=== PATIENT | female | born 1955 | race Caucasian/White ===

== ENCOUNTER 2019-09-24 11:38 | Outpatient (CLI) | payer BC, SELFPAY ==
[2019-09-24 12:20] LABS: Basophils % 0.6 %; Eosinophils # 0.1 10^3/uL (0.0-0.8); Eosinophils % 3.4 %; Hematocrit 42.7 % (37.0-47.0); Hemoglobin 12.9 g/dL (11.5-15.3); Lymphocytes # 1.4 10^3/uL (0.8-4.8); Lymphocytes % 43.4 %; Mean Corpuscular HGB Conc 30.2 g/dL (30.0-36.0); Mean Corpuscular Hemoglobin 25.1 pg (28.0-34.0); Mean Corpuscular Volume 83.1 fL (81-99); Mean Platelet Volume 9.8 fL (7.4-10.4); Monocytes # 0.3 10^3/uL (0.2-0.9); Monocytes % 9.5 %; Neutrophils # 1.4 10^3/uL (1.8-7.7); Neutrophils % 42.8 %; Nucleated Red Blood Cells % 0 %; Platelet Count 173 10^3/cmm (130-400); Red Blood Count 5.14 10^6/uL (4.1-5.3); Red Cell Distribution Width 14.6 % (12.1-15.1); White Blood Count 3.3 10^3/uL (4.0-10.0)
[2019-09-24 12:37] LABS: Alanine Aminotransferase 19 U/L (0-33); Albumin Level 3.7 g/dL (3.5-5.2); Alkaline Phosphatase 120 IU/L (35-105); Anion Gap 14.7 (5-19); Aspartate Amino Transferase 19 U/L (0-32); Blood Urea Nitrogen 16 mg/dL (8-23); Calcium 9.2 mg/dL (8.5-10.5); Carbon Dioxide 24 mmol/L (22-29); Chloride 104 mmol/L (98-107); Globulin 3.9 g/dL (1.3-4.6); Glomerular Filtration Rate 72.4 mL/min (90-130); Glucose 106 mg/dL (65-115); Osmolality Calculated 285 mOsm/kg (285-295); Potassium 3.7 mmol/L (3.5-5.1); Sodium 139 mmol/L (136-145); Total Bilirubin 0.3 mg/dL (0.15-1.2); Total Protein 7.6 g/dL (6.6-8.7)
== END 2019-09-24 11:39 | disposition home or self-care (01) ==
LOC: ONCMED 11:42
PROVIDERS: PCP Nurse Practitioner Family; Visit Provider Internal Medicine Medical Oncology
DX: C50.112 Malignant neoplasm of central portion of left female breast (principal); Z17.0 Estrogen receptor positive status [ER+]; E03.9 Hypothyroidism, unspecified; D70.2 Other drug-induced agranulocytosis; Z78.0 Asymptomatic menopausal state
CPT/HCPCS: 36415; 80053; 85025

== ENCOUNTER 2019-10-07 09:46 | Outpatient (CLI) | payer BC, SELFPAY ==
[2019-10-07 11:50] LABS: T3 Free 3.1 PG/ML (2.0-4.4); Thyroid Stimulating Hormone 0.26 uIU/mL (0.27-4.20)
--- NOTE | 2019-10-07 19:58 | ONC FU_ITS ---
Dr. Newton Patient Follow-Up Note Patient: Tamera Pierre Unit #: [id number]: 1955 Dicatated By: Emerson Newton M.D.Date of Visit:Oct 07, 2019 Onc Med Follow-up/Prog Note Chief Complaint: Breast cancer. History of Present Illness: This is a 63 year-old woman with grade 2 invasive ductal carcinoma of the left breast, stage IIIA (pT1c, pN2a, M0), ER positive/HI negative and HER-2/shanita negative. She had presented in February 2013 with an abnormal mammogram of the left breast. On 09/18/2013 stereotactic biopsy revealed a high-grade ductal carcinoma in situ (DCIS) with comedo necrosis and the rare microscopic foci of infiltrating ductal carcinoma. Prognostic markers showed ER positive at 97%, HI negative at <1%, HER-2/shanita negative, 1+ by IHC, FISH 0.9. On 10/08/2013 she was taken to OR by Dr. Aris Melgar for partial mastectomy and sentinel lymph node biopsy. At least 4 foci of invasive carcinoma were identified in the background of DCIS, the largest measured 1.3 cm, grade 2, with a positive lymphovascular invasion and positive margins. All four sentinel lymph nodes harvested were involved with the tumor, two of the four nodes had macro-metastatic disease, but without extranodal extension. Thus, her disease was pathologic stage at least IIIA (pT1c, pN2a, M0). On 10/29/2013 she underwent a left simple mastectomy. Pathology showed residual high-grade DCIS with rare microscopic foci of infiltrating ductal carcinoma. She was first seen by Dr. Dia on 11/27/2013. Staging PET CT showed no evidence of distant metastatic disease, but there were kidney stones and there was significant bilateral hydronephrosis. Renal ultrasound on 12/16/2013 showed [id number] bilateral hydronephrosis. She underwent a lithotripsy and bilateral ureteral stent placement, with subsequent removal. Echocardiogram on 12/01/2013 showed EF 72%. Port was placed. Adjuvant chemotherapy with Adriamycin and cyclophosphamide for 4 cycles delivered 12/23/2013-02/03/2014. She had significant hematological toxicities including grade 4 neutropenia without infection, and mild thrombocytopenia. She then received 4 cycles of paclitaxel 02/24/2014 - 04/07/14, complicated with grade 2 neuropathy and onycholysis. Port-A-Cath was removed. BRCA test was unrevealing. She completed adjuvant radiation treatment to the left chest wall and supraclavicular region on 07/01/2014 to a total dose of 6040 cGy. Adjuvant hormonal therapy with anastrozole began on 04/29/2014. Her mammogram in August of 2014 was BI-RADS 2b. DEXA scan showed normal bone density. In January 2015 she underwent delayed breast reconstruction with principal secretary placement. On 02/17/2015 a CBC revealed significant asymptomatic neutropenia, ANC 500. On 03/31/2015 she began a trial of steroid with taper. She did show response with WBC 3.4 and ANC 2400 after 2 weeks of steroids. However, as soon as the steroids were tapered off she had recurrent neutropenia, ANC 300 on 04/30/2015. Her sedimentation rate also had decreased from 63 to 21. As her neutropenia had persisted, she was evaluated with bone marrow aspiration/biopsy on 12/22/2015. The bone marrow showed 50-60% cellularity with no evidence of infiltrative process. There was limited dyserythropoiesis involving less than 5% of the population. Granulocytes were ignored to mature without evidence of significant maturation arrest. There were normal numbers of lymphocytes and plasma cells. The bone marrow differential showed 0% blasts, and blasts were not increased by flow cytometry. There was no storage iron identified. The FISH panel for MDS was negative, and the standard chromosome analysis was normal. 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 As she was not symptomatic, I opted to just monitor it with observation. She continued adjuvant hormonal therapy with anastrozole. As of her followup visit in June 2017 the anatrozole was put on hold due to worsening alopecia. She then continued adjuvant hormonal therapy with exemestane 25 mg daily. She was then seen for a follow-up visit on 12/03/2017. She had stopped the exemestane a couple weeks prior to that visit due to side effects, mainly that she just felt bad generally. At that point she was feeling better, and she agreed to continue adjuvant hormonal therapy with tamoxifen 20 mg daily. However, she tolerated it poorly, and she stopped treatment within one month. She was then followed on observation/expectant management. Her medical history, in addition to breast cancer and neutropenia, includes hypothyroidism and nephrolithiasis. Her previous surgeries included hysterectomy in 2002. She is a nonsmoker. INTERIM HISTORY: She is seen for a scheduled visit. Her main complaint is that she has been having pretty severe allergy related symptoms including watery eyes, sinus drainage, and sore throat. She has had very little benefit on a variety of medications. At the present time she is using Xyzal and an antihistamine spray, and she is undergoing allergy testing through Dr. Chávez's office. She has otherwise been feeling good. She has good energy and she has normal activity. ECOG score is 0. Her appetite comes and goes. She has lost a little weight. She does not have fever, night sweats, or hot flashes. She has just occasional cough. She does not complain of shortness of breath or chest pain. She was having nausea, likely medication related. It is better now. Her acid reflux is adequately managed. She has no complaints with bowel or bladder function. She has some stiffness after prolonged standing. She sometimes has low back pain. She does not complain of headache or dizziness, and she has no focal neurologic symptoms. Medications: Levocetirizine Dihydrochloride 1 Tablet (of 5 mg) Oral daily, Levothroid 1 Tablet (of 112 mcg) Oral daily, Oxybutynin Chloride 1 Tablet (of 5 mg) Oral daily PRN, Pantoprazole Sodium 1 Tablet (of 40 mg) Tablet, enteric coated Oral daily, Zolpidem Tartrate 1 Tablet (of 10 mg) Oral daily Allergies: Clarithromycin, Demerol, and Sulfa. Review of Systems: Constitutional - She has good energy and she has normal activity. Appetite comes and goes. She has lost a little weight. No fever, night sweats, or hot flashes. ECOG score is 0, ENMT - She is having bad allergy related symptoms including watery eyes, sinus drainage, and sore throat. No difficulty swallowing, Hematologic/Lymphatic - No abnormal bruising or bleeding, Respiratory - No shortness of breath. She occasionally has cough. No pleuritic pain or hemoptysis, Cardiovascular - No angina pain. No palpitations, Gastrointestinal - She was having nausea, possibly from medication. It is better now. Her acid reflux is adequately managed. No diarrhea or constipation. No blood in the stool or black stools, Genitourinary (F) - No dysuria or hematuria. No urinary frequency. No urgency or incontinence, Musculoskeletal - She has some stiffness, particularly when she has been standing up all day. She sometimes has back pain, Neurologic - No headache or dizziness. No numbness or tingling. No other focal neurologic symptoms, Psychiatric - No anxiety or depression. She has chronic insomnia. Vital Signs: Performed on Oct 07, 2019 10:07 Height - 65.00 in Weight - 174.6 lbs (LOW) BSA - 1.87 sq.m BMI - 29.06 Temperature - 98.2 F (LOW) Pulse - 87 /min Respiration - 20 /min BP - 147/64 mm(hg) (HIGH) O2 Sat - 99 % Pain - 0 Physical Examination: Constitutional - She looks good generally, Eyes - Sclerae nonicteric. Her eyes do look a little red and watery, ENMT - No lesions noted in the oral cavity, Hematologic/Lymphatic - No cervical or clavicular adenopathy, Respiratory - Lungs are clear with good air movement bilaterally, Cardiovascular - Heart rhythm is regular. There is no murmur, gallop, or rub noted, Breasts - The right breast shows no mass. There are no lesions noted in the left chest wall/reconstruction. There is no axillary adenopathy noted, Abdomen - Soft. Liver and spleen are not enlarged. There is no abdominal mass or ascites noted and there is no inguinal adenopathy, Extremities - No edema. Posterior tibial pulses are palpable bilaterally, Neurologic - No focal neurologic deficits noted. Lab/Imaging: Test performed on Sep 24, 2019 11:48 Sodium 139 mmol/L Potassium 3.7 mmol/L Chloride 104 mmol/L CO2 24 mmol/L Anion Gap 14.7 BUN 16 mg/dL Creatinine 0.8 mg/dL Cr Clearance (Est) 92.9800 mL/min eGFR 72.4 mL/min Glucose 106 mg/dL Calcium 9.2 mg/dL Protein, Total 7.6 g/dL Albumin 3.7 g/dL Globulin 3.9 g/dL Bilirubin, Total 0.3 mg/dL ALT (SGPT) 19 U/L AST (SGOT) 19 U/L Alkaline Phosphatase 120 IU/L WBC 3.3 10 3/uL RBC 5.14 10 6/uL HGB 12.9 g/dL HCT 42.7 % MCV 83.1 fL MCH 25.1 pg MCHC 30.2 g/dL RDW 14.6 % Platelet Count 173 10 3/cmm MPV 9.8 fL Neutrophils 1.4 10 3/uL Lymphocytes 1.4 10 3/uL Monocytes 0.3 10 3/uL Eosinophils 0.1 10 3/uL Basophils 0.0 10 3/uL Neutrophil % 42.8 % Lymphocyte % 43.4 % Monocyte % 9.5 % Eosinophil % 3.4 % Basophils % 0.6 % NRBC % 0 % Impression: 1. 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 2. She underwent lumpectomy and axillary sentinel lymph node biopsy on 10/08/2013 followed by left simple mastectomy on 10/29/2013. 3. She was given adjuvant chemotherapy with 4 cycles of Adriamycin/cyclophosphamide followed by 4 cycles of paclitaxel, completed in March 2014. 4. She completed prophylactic chest wall radiation on 07/01/2014 to a total dose of 6040 cGy. 5. Adjuvant hormonal therapy with Arimidex began in April 2014. 6. Her further clinical course was complicated by asymptomatic neutropenia. Bone marrow aspiration/biopsy on 12/22/2015 showed no evidence of myelodysplasia or metastatic involvement. Her other medical illnesses include: 7. GERD. 8. Allergic rhinitis. As of June 2017 the anastrozole was stopped due to worsening alopecia. Her adjuvant hormonal therapy was then transitioned to exemestane 25 mg daily. It was stopped in November 2017 due to extreme fatigue. She then began a trial of further adjuvant hormonal therapy with tamoxifen 20 mg daily. She again tolerated it poorly due to fatigue and just not feeling good generally. It was stopped as of December 2017. Her symptoms subsequently improved, and she was then followed on observation/expectant management. Overall, she appears be doing well clinically with no evidence of recurrence of the breast cancer. Recently she has been having worsening allergy related symptoms, And she is undergoing evaluation through Dr. Chávez's office. She otherwise appears stable clinically. Thus far there has been no evidence of recurrence of the breast cancer, and she is now 5 years out from completion of her radiation. Plan: She remains on observation/expectant management. I will see her again in next year in conjunction with her yearly mammogram schedule. Signed By: Emerson Newton M.D. <<Signature on File>>
== END 2019-10-07 09:47 | disposition home or self-care (01) ==
LOC: ONCMED 09:50
PROVIDERS: PCP Nurse Practitioner Family; Visit Provider Internal Medicine Medical Oncology
DX: Z08 Encounter for follow-up examination after completed treatment for malignant neoplasm (principal); Z85.3 Personal history of malignant neoplasm of breast; J30.9 Allergic rhinitis, unspecified; K21.9 Gastro-esophageal reflux disease without esophagitis; Z92.3 Personal history of irradiation; Z92.23 Personal history of estrogen therapy; Z90.12 Acquired absence of left breast and nipple
CPT/HCPCS: 84439; 84443; 84481; G0463

== ENCOUNTER 2020-02-25 13:05 | Outpatient (CLI) | payer BC, SELFPAY ==
--- NOTE | 2020-02-25 13:13 | MM_ITS ---
WS: [id number] RIGHT DIGITAL MAMMOGRAPHY WITH CAD CLINICAL INFORMATION: HX OF BREAST CA;LT MASTECTOMY HISTORY: COMPARISON: [id number] TECHNIQUE: 3 views of the right breast were obtained. FINDINGS: Scattered fibroglandular densities of the right breast. Lucent centered and punctate calcifications. No suspicious focal mass, asymmetry, calcifications, or architectural distortion. No evidence of norma gnancy. MM/[place] [id number] IMPRESSION: BI-RADS: 2-Benign FOLLOW UP: 1 Year Follow-up Recommend return to annual diagnostic mammography..
== END 2020-02-25 13:06 | disposition home or self-care (01) ==
LOC: ONCMED 13:08
PROVIDERS: PCP Nurse Practitioner Family; Visit Provider Internal Medicine Medical Oncology
DX: Z85.3 Personal history of malignant neoplasm of breast (principal)
CPT/HCPCS: 77065

== ENCOUNTER 2020-10-07 11:31 | Outpatient (CLI) | payer OTHER, SELFPAY ==
[2020-10-07 11:55] LABS: Basophils % 1.5 %; Eosinophils # 0.1 10^3/uL (0.0-0.8); Eosinophils % 5.6 %; Hematocrit 43.3 % (37.0-47.0); Hemoglobin 13.5 g/dL (11.5-15.3); Lymphocytes # 1.2 10^3/uL (0.8-4.8); Lymphocytes % 58.9 %; Mean Corpuscular HGB Conc 31.2 g/dL (30.0-36.0); Mean Corpuscular Hemoglobin 25.6 pg (28.0-34.0); Mean Platelet Volume 9.6 fL (7.4-10.4); Monocytes # 0.3 10^3/uL (0.2-0.9); Monocytes % 13.7 %; Neutrophils % 19.8 %; Nucleated Red Blood Cells % 0 %; Platelet Count 196 10^3/cmm (130-400); Red Blood Count 5.28 10^6/uL (4.1-5.3); Red Cell Distribution Width 14.6 % (12.1-15.1)
[2020-10-07 12:15] LABS: Alanine Aminotransferase 15 U/L (0-33); Albumin Level 3.9 g/dL (3.5-5.2); Alkaline Phosphatase 121 IU/L (35-105); Anion Gap 10.8 (5-19); Aspartate Amino Transferase 17 U/L (0-32); Blood Urea Nitrogen 12 mg/dL (8-23); Calcium 8.8 mg/dL (8.5-10.5); Carbon Dioxide 29 mmol/L (22-29); Chloride 105 mmol/L (98-107); Globulin 3.3 g/dL (1.3-4.6); Glomerular Filtration Rate 72.2 mL/min (90-130); Glucose 102 mg/dL (65-115); Osmolality Calculated 292 mOsm/kg (285-295); Potassium 3.8 mmol/L (3.5-5.1); Sodium 141 mmol/L (136-145); Total Bilirubin 0.3 mg/dL (0.15-1.2); Total Protein 7.2 g/dL (6.6-8.7)
[2020-10-07 13:06] LABS: Neutrophils # 0.39 10^3/uL (1.8-7.7)
--- NOTE | 2020-10-10 14:59 | ONC FU_ITS ---
Dr. Newton Patient Follow-Up Note Patient: Tamera Pierre Unit #: [id number]: 1955 Dicatated By: Emerson Newton M.D.Date of Visit:Oct 07, 2020 Onc Med Follow-up/Prog Note Chief Complaint: Breast cancer. 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 She had presented in February 2013 with an abnormal mammogram of the left breast. On 09/18/2013 stereotactic biopsy revealed a high-grade ductal carcinoma in situ (DCIS) with comedo necrosis and the rare microscopic foci of infiltrating ductal carcinoma. Prognostic markers showed ER positive at 97%, NV negative at <1%, HER-2/shanita negative, 1+ by IHC, FISH 0.9. On 10/08/2013 she was taken to OR by Dr. Aris Melgar for partial mastectomy and sentinel lymph node biopsy. At least 4 foci of invasive carcinoma were identified in the background of DCIS, the largest measured 1.3 cm, grade 2, with a positive lymphovascular invasion and positive margins. All four sentinel lymph nodes harvested were involved with the tumor, two of the four nodes had macro-metastatic disease, but without extranodal extension. Thus, her disease was pathologic stage at least IIIA (pT1c, pN2a, M0). On 10/29/2013 she underwent a left simple mastectomy. Pathology showed residual high-grade DCIS with rare microscopic foci of infiltrating ductal carcinoma. She was first seen by Dr. Dia on 11/27/2013. Staging PET CT showed no evidence of distant metastatic disease, but there were kidney stones and there was significant bilateral hydronephrosis. Renal ultrasound on 12/16/2013 showed [id number] bilateral hydronephrosis. She underwent a lithotripsy and bilateral ureteral stent placement, with subsequent removal. Echocardiogram on 12/01/2013 showed EF 72%. Port was placed. Adjuvant chemotherapy with Adriamycin and cyclophosphamide for 4 cycles delivered 12/23/2013-02/03/2014. She had significant hematological toxicities including grade 4 neutropenia without infection, and mild thrombocytopenia. She then received 4 cycles of paclitaxel 02/24/2014 - 04/07/14, complicated with grade 2 neuropathy and onycholysis. Port-A-Cath was removed. BRCA test was unrevealing. She completed adjuvant radiation treatment to the left chest wall and supraclavicular region on 07/01/2014 to a total dose of 6040 cGy. Adjuvant hormonal therapy with anastrozole began on 04/29/2014. Her mammogram in August of 2014 was BI-RADS 2b. DEXA scan showed normal bone density. In January 2015 she underwent delayed breast reconstruction with exhibit carpenter placement. On 02/17/2015 a CBC revealed significant asymptomatic neutropenia, ANC 500. On 03/31/2015 she began a trial of steroid with taper. She did show response with WBC 3.4 and ANC 2400 after 2 weeks of steroids. However, as soon as the steroids were tapered off she had recurrent neutropenia, ANC 300 on 04/30/2015. Her sedimentation rate also had decreased from 63 to 21. As her neutropenia had persisted, she was evaluated with bone marrow aspiration/biopsy on 12/22/2015. The bone marrow showed 50-60% cellularity with no evidence of infiltrative process. There was limited dyserythropoiesis involving less than 5% of the population. Granulocytes were ignored to mature without evidence of significant maturation arrest. There were normal numbers of lymphocytes and plasma cells. The bone marrow differential showed 0% blasts, and blasts were not increased by flow cytometry. There was no storage iron identified. The FISH panel for MDS was negative, and the standard chromosome analysis was normal. 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 As she was not symptomatic, I opted to just monitor it with observation. She continued adjuvant hormonal therapy with anastrozole. As of her followup visit in June 2017 the anatrozole was put on hold due to worsening alopecia. She then continued adjuvant hormonal therapy with exemestane 25 mg daily. She was then seen for a follow-up visit on 12/03/2017. She had stopped the exemestane a couple weeks prior to that visit due to side effects, mainly that she just felt bad generally. At that point she was feeling better, and she agreed to continue adjuvant hormonal therapy with tamoxifen 20 mg daily. However, she tolerated it poorly, and she stopped treatment within one month. She was then followed on observation/expectant management. Her medical history, in addition to breast cancer and neutropenia, includes hypothyroidism and nephrolithiasis. Her previous surgeries included hysterectomy in 2002. She is a nonsmoker. INTERIM HISTORY: She is seen for a scheduled visit. She has been feeling good generally. She says she had the COVID-19 virus infection back in January. She recovered uneventfully. She has good energy and activity tolerance. Her ECOG score is 0. Her appetite is good. She has no fever, night sweats, or hot flashes. She has significant allergies, and she is now getting allergy shots weekly. She was having dry mouth, which improved significantly when she stopped taking her bladder medication. She has no shortness of breath, cough, or chest pain. She has some acid reflux associated with hiatal hernia, but that has been adequately managed with medication. She has no other GI complaints. She has more frequent urination now. She has no significant joint or bone pain. She does not complain of headache or dizziness, and she has no focal neurologic symptoms. Medications: Levocetirizine Dihydrochloride 1 Tablet (of 5 mg) Oral daily, Levothroid 1 Tablet (of 112 mcg) Oral daily, Oxybutynin Chloride 1 Tablet (of 5 mg) Oral daily PRN, Pantoprazole Sodium 1 Tablet (of 40 mg) Tablet, enteric coated Oral daily, Zolpidem Tartrate 1 Tablet (of 10 mg) Oral daily Allergies: Clarithromycin, Demerol, and Sulfa. Vital Signs: Performed on Oct 07, 2020 16:15 Height - 65.00 in Weight - 184.4 lbs (HIGH) BSA - 1.91 sq.m BMI - 30.69 (HIGH) Temperature - 99 F (HIGH) Pulse - 85 /min Respiration - 18 /min BP - 155/91 mm(hg) (HIGH) O2 Sat - 99 % Pain - 0 Fatigue - 0 Physical Examination: Constitutional - She looks good generally, Eyes - Sclerae nonicteric. Conjunctivae clear, ENMT - No lesions noted in the oral cavity, Hematologic/Lymphatic - No cervical or clavicular adenopathy, Respiratory - Lungs are clear with good air movement bilaterally, Cardiovascular - Heart rhythm is regular. There is no murmur, gallop, or rub noted, Breasts - The right breast shows no mass. There are no lesions noted in the left chest wall/reconstruction. There is no axillary adenopathy noted, Abdomen - Soft. Liver and spleen are not enlarged. There is no abdominal mass or ascites noted and there is no inguinal adenopathy, Extremities - No edema, Integumentary - There is a pigmented nevus in the upper aspect of the right arm posteriorly, Neurologic - No focal neurologic deficits noted. Lab/Imaging: Test performed on Oct 07, 2020 11:44 Sodium 141 mmol/L Potassium 3.8 mmol/L Chloride 105 mmol/L CO2 29 mmol/L Anion Gap 10.8 BUN 12 mg/dL Creatinine 0.8 mg/dL Cr Clearance (Est) 93.81 mL/min eGFR 72.2 mL/min Glucose 102 mg/dL Osmolality - Calculated 292 mOsm/kg Calcium 8.8 mg/dL Protein, Total 7.2 g/dL Albumin 3.9 g/dL Globulin 3.3 g/dL Bilirubin, Total 0.3 mg/dL ALT (SGPT) 15 U/L AST (SGOT) 17 U/L Alkaline Phosphatase 121 IU/L WBC 2.0 10 3/uL RBC 5.28 10 6/uL HGB 13.5 g/dL HCT 43.3 % MCV 82.0 fL MCH 25.6 pg MCHC 31.2 g/dL RDW 14.6 % Platelet Count 196 10 3/cmm MPV 9.6 fL Neutrophils 0.39 10 3/uL Lymphocytes 1.2 10 3/uL Monocytes 0.3 10 3/uL Eosinophils 0.1 10 3/uL Basophils 0.0 10 3/uL Neutrophil % 19.8 % Lymphocyte % 58.9 % Monocyte % 13.7 % Eosinophil % 5.6 % Basophils % 1.5 % NRBC % 0 % Problem List: 1. Grade 2 invasive ductal carcinoma of the left breast, stage IIIA (pT1c, N2a, M0), ER positive/NV negative and HER-2/shanita negative. 2. During followup she developed severe neutropenia. She was not symptomatic with it. It was presumed to be autoimmune, as her bone marrow aspiration/biopsy on 12/22/2015 showed no evidence of myelodysplasia or metastatic involvement. 3. GERD. 4. Allergic rhinitis. Problems Addressed with this Encounter and Plan: 1. 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 She underwent lumpectomy and axillary sentinel lymph node biopsy on 10/08/2013 followed by left simple mastectomy on 10/29/2013. She was given adjuvant chemotherapy with 4 cycles of Adriamycin/cyclophosphamide followed by 4 cycles of paclitaxel, completed in March 2014. She completed prophylactic chest wall radiation on 07/01/2014 to a total dose of 6040 cGy. Adjuvant hormonal therapy with Arimidex began in April 2014. As of June 2017 the anastrozole was stopped due to worsening alopecia. Her adjuvant hormonal therapy was then transitioned to exemestane 25 mg daily. It was stopped in November 2017 due to extreme fatigue. She then began a trial of further adjuvant hormonal therapy with tamoxifen 20 mg daily. She again tolerated it poorly due to fatigue and just not feeling good generally. It was stopped as of December 2017. Her symptoms subsequently improved, and she was then followed on expectant management. Overall, she has been doing well clinically since stopping the adjuvant hormonal therapy. She has had some ongoing issues with environmental allergies, for which she is now getting allergy shots weekly. There has been no evidence, though, of recurrence of her breast cancer. She remains on observation/expectant management. She will be scheduled for follow-up visit in 1 year. 2. Her clinical course was complicated by asymptomatic neutropenia. This is presumed to be autoimmune, as her bone marrow aspiration/biopsy on 12/22/2015 showed no evidence of myelodysplasia or metastatic involvement. It has been followed expectantly, as she has remained asymptomatic with it. Signed By: Emerson Newton M.D. <<Signature on File>>
== END 2020-10-07 11:32 | disposition home or self-care (01) ==
LOC: ONCMED 11:38
PROVIDERS: PCP Family Medicine; Visit Provider Internal Medicine Medical Oncology
DX: Z08 Encounter for follow-up examination after completed treatment for malignant neoplasm (principal); Z85.3 Personal history of malignant neoplasm of breast; D70.1 Agranulocytosis secondary to cancer chemotherapy; T45.1X5A Adverse effect of antineoplastic and immunosuppressive drugs, initial encounter; K21.9 Gastro-esophageal reflux disease without esophagitis; J30.9 Allergic rhinitis, unspecified; L65.8 Other specified nonscarring hair loss; Z79.899 Other long term (current) drug therapy; Z92.21 Personal history of antineoplastic chemotherapy
CPT/HCPCS: 36415; 80053; 85025; 99214

== ENCOUNTER 2021-02-28 11:41 | Outpatient (CLI) | payer MEDICARE, SELFPAY ==
--- NOTE | 2021-02-28 11:50 | MM_ITS ---
WS: [id number] RIGHT DIGITAL MAMMOGRAPHY WITH CAD CLINICAL INFORMATION: HX OF BREAST CA;LT MASTECTOMY. HISTORY OF RIGHT BREAST REDUCTION COMPARISON: February 25, 2020 TECHNIQUE: 4 views of the right breast were obtained. FINDINGS: Scattered fibroglandular densities of the right breast. Benign punctate and clustered calcifications. No suspicious focal mass, asymmetry, calcifications, or architectural distortion. No evidence of norma gnancy. MM/[place] [id number] IMPRESSION: BI-RADS: 2-Benign FOLLOW UP: 1 Year Follow-up Recommend return to annual diagnostic mammography.
== END 2021-02-28 11:42 | disposition home or self-care (01) ==
LOC: RADSHAW 11:46
PROVIDERS: PCP Family Medicine; Visit Provider Internal Medicine Medical Oncology
DX: Z85.3 Personal history of malignant neoplasm of breast (principal); Z90.12 Acquired absence of left breast and nipple
CPT/HCPCS: 77065

== ENCOUNTER 2021-11-16 12:01 | Oncology outpatient (recurring) (ONCR) | payer MEDICARE, SELFPAY | END 2021-12-14 23:59 | disposition home or self-care (01) | PROVIDERS: PCP Family Medicine; Visit Provider Nurse Practitioner Family | DX: Z08 Encounter for follow-up examination after completed treatment for malignant neoplasm (principal); Z85.3 Personal history of malignant neoplasm of breast; Z90.12 Acquired absence of left breast and nipple; D70.8 Other neutropenia; D50.9 Iron deficiency anemia, unspecified; Z79.899 Other long term (current) drug therapy; Z92.21 Personal history of antineoplastic chemotherapy; Z92.3 Personal history of irradiation | CPT/HCPCS: 80053; 82728; 83540; 83550; 85025; 99214 ==

== ENCOUNTER 2022-02-20 08:11 | Outpatient (CLI) | payer MEDICARE, SELFPAY ==
--- NOTE | 2022-02-20 08:23 | MM_ITS ---
WS: [id number] Right breast diagnostic 3D tomosynthesis digital mammogram 02/20/2022 Clinical Data: HX OF BREAST CA;LT MAST Comparison: 02/28/2021, 02/25/2020, 01/19/2019, 12/12/2017, 12/06/2016, 12/06/2015, 09/02/2014, 02/26/2013 , 12/29/2011, 12/13/2010, 04/06/2010. Findings: The right breast shows scattered fibroglandular tissue. There are benign calcifications in the breast s. There are no spiculated masses or clustered calcifications. There are no secondary signs of carcin martin. MM/[place] [id number] Impression: 1. Negative right breast mammogram. 2. Recommend annual right breast mammogram BIRADS: 1-Negative FOLLOW UP: 1 Year Follow-up The CAD bakery products checker was used.
[2022-02-20 09:28] LABS: Basophils % 1.4 %; Eosinophils # 0.2 10^3/uL (0.0-0.8); Eosinophils % 9.4 %; Hematocrit 43.9 % (37.0-47.0); Hemoglobin 13.9 g/dL (11.5-15.3); Lymphocytes # 1.3 10^3/uL (0.8-4.8); Lymphocytes % 59.9 %; Mean Corpuscular HGB Conc 31.7 g/dL (30.0-36.0); Mean Corpuscular Hemoglobin 26.5 pg (28.0-34.0); Mean Corpuscular Volume 83.8 fl (81-99); Mean Platelet Volume 9.5 fL (7.4-10.4); Monocytes # 0.3 10^3/uL (0.2-0.9); Neutrophils % 13.3 %; Nucleated Red Blood Cells % 0 %; Platelet Count 176 10^3/cmm (130-400); Red Blood Count 5.24 10^6/uL (4.1-5.3); Red Cell Distribution Width 14.4 % (12.1-15.1); White Blood Count 2.1 10^3/uL (4.0-10.0)
[2022-02-20 09:34] LABS: Iron 48 ug/dL (37-145); Total Iron Binding Capacity 341 mcg/dl; Unsaturated Iron Binding 293 ug/dL (112-347)
[2022-02-20 09:44] LABS: Neutrophils # 0.28 10^3/uL (1.8-7.7)
== END 2022-02-20 08:12 | disposition home or self-care (01) ==
LOC: RAD 08:12
PROVIDERS: PCP Family Medicine; Visit Provider Internal Medicine Medical Oncology
DX: Z85.3 Personal history of malignant neoplasm of breast (principal); D50.9 Iron deficiency anemia, unspecified; D70.8 Other neutropenia
CPT/HCPCS: 77061; 83540; 83550; 85025

== ENCOUNTER 2022-11-28 16:46 | Observation (INO) | payer MEDICARE, SELFPAY ==
[2022-11-27 10:19] LABS: Add Urine Microscopic? NO; Charge for UA Resulting for Rev
--- NOTE | 2022-11-27 10:22 | ANES.PREANE2 ---
Pre-Anesthetic Assessment Height/Weight: Height 1.65 m Weight 79.379 kg Operation Date: 11/28/22 12:50 Proposed Procedures p Single incision mid urethral sling 03108,N39.3(Not Applicable) - Ubaldo Rosales MD Familial anesthetic complications: PONV Was Beta Jeremy taken within 24 hours: N/A Was Clonidine taken within 24 hours: N/A Social No alcohol and No tobacco Exam alert, oriented x 3, clear to auscultation bilaterally and regular rate & rhythm Airway Submandibular: within normal limits Cervical ROM: within normal limits Mallampati: Class II Dentition: false CV/HEM Anemia GI Gastroesophageal Reflux Disease Metabolic Thyroid Disease Anesthetic Plan ASA status: 2 Anesthesia: General Medications/Allergies Home Medications Medication Instructions Recorded Confirmed Last Taken Type levocetirizine 5 mg tablet (Xyzal) 5 mg PO BID 11/16/21 11/27/22 11/27/22 History levothyroxine 112 mcg capsule 112 mcg PO DAILY 11/16/21 11/27/22 11/27/22 History oxybutynin chloride 5 mg tablet 5 mg PO DAILY 11/16/21 11/27/22 11/27/22 History pantoprazole 40 mg tablet,delayed 40 mg PO DAILY 11/16/21 11/27/22 11/27/22 History release trazodone 50 mg tablet 50 mg PO DAILY 11/16/21 11/27/22 11/27/22 History zolpidem 5 mg tablet 5 mg PO 11/16/21 11/27/22 11/27/22 History Allergies Allergy/AdvReac Type Severity Reaction Status Date / Time clarithromycin Allergy Unknown Unknown Verified 11/27/22 09:49 meperidine [From Demerol] Allergy Unknown Unknown Verified 11/27/22 09:49 Sulfa (Sulfonamide Allergy Unknown Unknown Verified 11/27/22 09:49 Antibiotics) [facility] Anesthesia Medical History Allergic rhinitis Autoimmune neutropenia Breast cancer GERD (gastroesophageal reflux disease) History of nephrolithiasis Hypothyroidism Iron deficiency anemia Surgical History History of appendectomy History of bone marrow biopsy (12/22/15) Bone marrow aspiration/biopsy History of breast reconstruction (01/2015) 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 History of section History of hysterectomy (2002) History of left mastectomy (10/29/13) History of lithotripsy History of melanoma excision (2020) Wide excision of right upper arm melanoma with right axillary sentinel lymph node biopsy History of partial mastectomy of left breast (10/08/13) Partial left mastectomy with axillary sentinel lymph node biopsy Family History Sister Cancer Ovarian and breast Family/Other Cancer Son Diabetes Other CAD (coronary artery disease) Dementia Hyperlipidemia Hypertension Denies family history of Clotting disorder Psychiatric illness Chronic kidney disease (CKD) Suicide Anesthesia complication Bleeding disorder Lung disease Stroke Social History Smoking and tobacco status: never smoked Alcohol intake: never Data Anesthesia 11/27/22 10:00 11/27/22 10:00 Cardiac Studies: No Data to Display
[2022-11-27 10:23] LABS: Basophils % 0.6 %; Eosinophils # 0.1 10^3/uL (0.0-0.8); Eosinophils % 4.3 %; Hemoglobin 14.8 g/dL (11.5-15.3); Lymphocytes # 1.1 10^3/uL (0.8-4.8); Lymphocytes % 34.3 %; Mean Corpuscular HGB Conc 32.9 g/dL (30.0-36.0); Mean Corpuscular Hemoglobin 27.4 pg (28.0-34.0); Mean Corpuscular Volume 83.2 fl (81-99); Mean Platelet Volume 9.4 fL (7.4-10.4); Monocytes # 0.3 10^3/uL (0.2-0.9); Monocytes % 10.5 %; Neutrophils # 1.63 10^3/uL (1.8-7.7); Neutrophils % 50.3 %; Nucleated Red Blood Cells % 0 %; Platelet Count 171 10^3/cmm (130-400); Red Blood Count 5.41 10^6/uL (4.1-5.3); Red Cell Distribution Width 13.6 % (12.1-15.1); White Blood Count 3.2 10^3/uL (4.0-10.0)
[2022-11-27 10:38] LABS: Urine Appearance Clear (CLEAR); Urine Color Straw (Yellow); pH Urine 8 (5-7)
[2022-11-27 10:39] LABS: Bilirubin Urine Neg (Negative); Blood Urine Neg (Negative); Glucose Urine UA Norm (Normal); Ketones Urine Negative (Negative); Leukocyte Esterase Urine Negative (Negative); Nitrate Urine Negative (Negative); Protein Urine Neg (Negative); Sulfosalicylic Acid Urine Negative (Negative); Urobilinogen Urine Norm (Negative)
[2022-11-27 10:54] LABS: Alanine Aminotransferase 17 U/L (0-33); Albumin Level 4.1 g/dL (3.5-5.2); Alkaline Phosphatase 118 U/L (35-105); Blood Urea Nitrogen 17 mg/dL (8-23); Calcium 9.2 mg/dL (8.5-10.5); Carbon Dioxide 29 mmol/L (22-29); Chloride 105 mmol/L (98-107); Globulin 3.3 g/dL (1.3-4.6); Glomerular Filtration Rate 62.5 mL/min (90-130); Glucose 96 mg/dL (65-115); Osmolality Calculated 293 mOsm/kg (285-295); Sodium 141 mmol/L (136-145); Total Bilirubin 0.3 mg/dL (0.15-1.2); Total Protein 7.4 g/dL (6.6-8.7)
[2022-11-27 11:01] LABS: Anion Gap 11.4 (5-19); Aspartate Amino Transferase 27 U/L (0-32); Potassium 4.4 mmol/L (3.5-5.1)
[2022-11-28] VITALS (12 sets, daily range): BP systolic 137–173; BP diastolic 78–89; PULSE 60–95; RESP 14–17; TEMP 36.3–36.6; O2SAT 96–100
[2022-11-28] MEDS: scopolamine 1.5 Patch 1 PATCH TRANSDERMA (11:18)
[2022-11-28] MEDS: sodium chloride 0.9% 500 ML IV (11:19)
[2022-11-28] MEDS: enoxaparin 30 mg/0.3 mL Syringe SUBCUT (11:29)
[2022-11-28] MEDS: sodium chloride 0.9% 1,000 ML 30 ML IV (12:06)
--- NOTE | 2022-11-28 14:42 | P.ANESUD_ITS ---
Pre-Anesthetic Update Pre-Anesthetic Assessment: Date of Surgery/Procedure: 11/28/22 Preop June gnosis: stress urinary incontinence Proposed Procedure: Operation Date: 11/28/22 12:50 Proposed Procedures p Single incision mid urethral sling 32405,N39.3(Not Applicable) - Ubaldo Rosales MD Any changes to Pre-Anesthetic Assessment?: No Last Intake: Intake Last Liquid Date 11/28/22 Last Liquid Time 06:00 Last Solid Date 11/27/22 Last Solid Time 21:00 Labs Last 48hrs: Short CBC 11/27/22 Range/Units 10:00 WBC 3.2 L (4.0-10.0) 10^3/ uL Hgb 14.8 (11.5-15.3) g/dL Hct 45.0 (37.0-47.0) % MCV 83.2 (81-99) fl Plt Count 171 (130-400) 10^3/c mm Neut % (Auto) 50.3 % Neut # (Auto) 1.63 L (1.8-7.7) 10^3/u L BMP 11/27/22 10:00 Sodium 141 Potassium 4.4 Chloride 105 Carbon Dioxide 29 BUN 17 Creatinine 0.9 Glucose 96 Calcium 9.2 Liver Function 11/27/22 Range/Units 10:00 Total Bilirubin 0.3 (0.15-1.2) mg/dL AST 27 (0-32) U/L ALT 17 (0-33) U/L Alkaline Phosphata se 118 H (35-105) U/L Albumin 4.1 (3.5-5.2) g/dL Urine 11/27/22 Range/Units 10:00 Urine Color Straw (Yellow) Urine Appearance Clear (CLEAR) Urine pH 8 H (5-7) Ur Specific Gravit y 1.010 (1.005-1.030) Urine Protein Neg (Negative) Urine Glucose (UA) Norm (Normal) Urine Ketones Negative (Negative) Urine Nitrate Negative (Negative) Urine Bilirubin Neg (Negative) Ur Leukocyte Analisa ase Negative (Negative) Blood Bank 11/27/22 10:00 Blood Type B Positive Rho(D) Type Positive Antibody Screen Negative Vitals: Temperature 97.6 F 11/28/22 11:03 Pulse Rate 64 11/28/22 11:03 Respiratory Rate 16 11/28/22 11:03 Blood Pressure 173/89 11/28/22 11:03 Blood Pressure Anne n 117 11/28/22 11:03 Pulse Oximetry 98 11/28/22 11:03 Oxygen Delivery Me thod Room Air 11/28/22 11:04 Exam: Pre-Anes Outpt Exam: alert, oriented x 3, clear to auscultation bilaterally and regular rate & rhythm Cardiac Studies: No Data to Display
--- NOTE | 2022-11-28 15:51 | W.PM.OPSUD ---
Surgery/Procedure H&P Update DATE OF PROCEDURE: November 28, 2022 DATE H&P PERFORMED: 11/27/22 H&P UPDATE INFORMATION: I have reviewed H&P completed within last 30 days, I have examined patient prior to procedure and No changes to prior documentation PREOP DIAGNOSIS: stress urinary incontinence PLANNED PROCEDURE: Operation Date: 11/28/22 12:50 Proposed Procedures p Single incision mid urethral sling 08805,N39.3(Not Applicable) - Ubaldo Rosales MD
[2022-11-28] MEDS: ceFAZolin 2,000 MG in sodium chloride 0.9% (plus) 50 ML 100 MG IV (15:56)
[2022-11-28] MEDS: lidocaine-epi 2% 20 mL INJ INJECTION (16:31)
--- NOTE | 2022-11-28 16:41 | PM.OP ---
Operative Report Date of procedure: November 28, 2022 Pre-op diagnosis: Preop Diagnosis stress urinary incontinence Post-op diagnosis: Same Procedure done: Incision mid urethral sling Implants: Coloplast Altis sling Surgeon: Ubaldo Rosales MD Estimated blood loss (mL): 5 IV fluids (mL): 400 Urine output (mL): 300 Procedure: After obtaining informed consent, the patient was taken to the operating room and placed in the supine position, given general anesthesia, and prepped and draped in sterile fashion. The abdomen, vulva and vagina were prepped and draped in a sterile manner. A time out procedure was performed. The anterior vaginal mucosa beneath the midurethra was infiltrated with 0.5% Marcaine with epinephrine. A vertical midline incision was made beneath the midurethra, nearly 1.5 cm length. Careful submucosal dissection was performed bilaterally up to the interior portion of the inferior pubic ramus. The insertion of adductor longus tendon on the patient?s pubic ramus was identified as reference land anderson. Palpated the notch along the internal edge of ischiopubic ramus where the adductor longus tendon and the inferior pubic ramus meet. The Altis single incision sling (SIS) was selected. Then the needle of the SIS inserted aiming at the location of this notch. One of the integrated self-fixating tips place onto the needle by sliding it over the end of the needle. The needle/sling assembly was inserted toward the location of identified reference notch making sure that the flat of the handle is perpendicular to the desired path. The needle was tracked along the posterior surface of the ischiopubic ramus until the midline anderson on the mesh is approximately at the midline position under the urethra. The needle was removed and the same was repeated on the contralateral side until the appropriate sling tension under the urethra was achieved ensuring that the mesh lays flat. The needle was removed and vaginal incision was closed in a running interlocking fashion with 2-0 Vicryl. Excellent hemostasis was obtained. Closure of vaginal incision in a running lock fashion with 3-0 Vicryl. Sponge, lap, needle, and instrument counts were correct times three. The patient was taken to the recovery room, awake and in stable condition.
--- NOTE | 2022-11-28 16:51 | ANE.PACU2 ---
Inpatient post-anesthesia follow up: Airway intact: Yes Vital signs: Temperature 97.6 F Pulse Rate 64 Respiratory Rate 16 Blood Pressure 173/89 Pulse Oximetry 98 Oxygen Delivery Me thod Room Air Oxygen Flow Rate Fraction of Inspir ed Oxygen Hydration adequate: Yes Nausea and vomiting: No Pain level: 2 Mental status: Baseline
[2022-11-28] MEDS: docusate sodium 100 mg Capsule PO (18:44)
[2022-11-28] MEDS: ketorolac 30 mg/mL INJ IVP (18:44)
[2022-11-28] MEDS: dextrose 5%-lactated ringers 1,000 ML 125 ML IV (18:45)
[2022-11-28] MEDS: zolpidem 5 mg Tablet PO (23:09)
[2022-11-29] MEDS: ketorolac 30 mg/mL INJ IVP ×2 (00:26→07:39)
[2022-11-29 00:34] VITALS: BP 119/74; PULSE 70; RESP 15; TEMP 36.3; O2SAT 99
[2022-11-29] MEDS: acetaminophen 325 mg Tablet 650 MG PO (02:18)
[2022-11-29] MEDS: dextrose 5%-lactated ringers 1,000 ML 125 ML IV (02:19)
[2022-11-29 04:06] VITALS: BP 118/72; PULSE 68; RESP 15; TEMP 36.4; O2SAT 98
[2022-11-29 05:26] LABS: Hematocrit 39.5 % (37.0-47.0); Mean Corpuscular HGB Conc 32.9 g/dL (30.0-36.0); Mean Corpuscular Hemoglobin 27.1 pg (28.0-34.0); Mean Corpuscular Volume 82.3 fl (81-99); Mean Platelet Volume 9.6 fL (7.4-10.4); Platelet Count 149 10^3/cmm (130-400); Red Cell Distribution Width 13.2 % (12.1-15.1); White Blood Count 5.1 10^3/uL (4.0-10.0)
[2022-11-29] MEDS: docusate sodium 100 mg Capsule PO (08:30)
[2022-11-29] MEDS: pantoprazole DR 40 mg Tablet PO (08:30)
[2022-11-29] MEDS: oxybutynin 5 mg Tablet PO (08:31)
[2022-11-29] MEDS: levothyroxine 112 mcg Tablet PO (08:31)
--- NOTE | 2022-11-29 10:42 | PM.OBGYDC ---
Discharge Providers PROFESSOR OF ENGLISH Date of Admission: 11/28/22 16:46 Date of Discharge: 11/29/22 Attending Provider at Admission: Ubaldo Rosales MD Attending Provider at Discharge: Ubaldo Rosales MD Primary Care Provider: Jaren Duval Reason for Visit Reason for Visit: [id number] Brief History: Mrs. Pierre 67-year-old female with a history of mixed urinary incontinence Hospital Course Hospital Course Mrs. Mortensen 67-year-old female admitted for planned single incision mid urethral sling. Procedure was performed without complication. Overnight observation was uneventful. PVR within normal limits. Tolerating diet well. Ambulating without difficulty. Counseled regarding weight lifting limitation to 10 pounds and pelvic rest for 6 weeks (no sex, no tampons, no vaginal douches). Return to the emergency room if any fever, increased bleeding or pain. Physical Exam Narrative: GA: Alert and oriented ?3. HEENT: WNL. Heart: Regular rate and rhythm. Lungs: Clear to auscultation bilaterally. 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 Extremities: No edema, no cyanosis, no calves pain. Urinary Catheter Management: Hankins: Cath Placed During This Visit: yes, but has since been removed by the nurse Reason for Continuing Indwelling Catheter: Decision to DC Catheter Urinary Catheter Date of Insertion: 11/28/22 Urinary Catheter Time of Insertion: 16:18 Date Urinary Catheter Removed: 11/29/22 Time Urinary Catheter Discontinued: 05:15 History History History 3 Term 3 0 Miscarriages/Ectopic 0 Living Children 3 Discharge Data Studies Completed and Pending Laboratory Results WBC 5.1 10^3/uL (4.0-10.0) 11/29/22 05:05 RBC 4.80 10^6/uL (4.1-5.3) 11/29/22 05:05 Hgb 13.0 g/dL (11.5-15.3) 11/29/22 05:05 Hct 39.5 % (37.0-47.0) 11/29/22 05:05 MCV 82.3 fl (81-99) 11/29/22 05:05 MCH 27.1 pg (28.0-34.0) L 11/29/22 05:05 MCHC 32.9 g/dL (30.0-36.0) 11/29/22 05:05 RDW 13.2 % (12.1-15.1) 11/29/22 05:05 Plt Count 149 10^3/cmm (130-400) 11/29/22 05:05 MPV 9.6 fL (7.4-10.4) 11/29/22 05:05 Neut % (Auto) 50.3 % 11/27/22 10:00 Lymph % (Auto) 34.3 % 11/27/22 10:00 Cooper % (Auto) 10.5 % 11/27/22 10:00 Eos % (Auto) 4.3 % 11/27/22 10:00 Baso % (Auto) 0.6 % 11/27/22 10:00 Neut # (Auto) 1.63 10^3/uL (1.8-7.7) L 11/27/22 10:00 Lymph # (Auto) 1.1 10^3/uL (0.8-4.8) 11/27/22 10:00 Cooper # (Auto) 0.3 10^3/uL (0.2-0.9) 11/27/22 10:00 Eos # (Auto) 0.1 10^3/uL (0.0-0.8) 11/27/22 10:00 Baso # (Auto) 0.0 10^3/uL (0.0-0.1) 11/27/22 10:00 Nucleated RBC % (auto) 0 % 11/27/22 10:00 Nucleated RBCs # 0.0 /100WBC 11/27/22 10:00 Sodium 141 mmol/L (136-145) 11/27/22 10:00 Potassium 4.4 mmol/L (3.5-5.1) 11/27/22 10:00 Chloride 105 mmol/L (98-107) 11/27/22 10:00 Carbon Dioxide 29 mmol/L (22-29) 11/27/22 10:00 Anion Gap 11.4 (5-19) 11/27/22 10:00 BUN 17 mg/dL (8-23) 11/27/22 10:00 Creatinine 0.9 mg/dL (0.5-0.9) 11/27/22 10:00 GFR Calculation 62.5 mL/min (90-130) L 11/27/22 10:00 Glucose 96 mg/dL (65-115) 11/27/22 10:00 Calculated Osmolality 293 mOsm/kg (285-295) 11/27/22 10:00 Calcium 9.2 mg/dL (8.5-10.5) 11/27/22 10:00 Total Bilirubin 0.3 mg/dL (0.15-1.2) 11/27/22 10:00 AST 27 U/L (0-32) 11/27/22 10:00 ALT 17 U/L (0-33) 11/27/22 10:00 Alkaline Phosphatase 118 U/L (35-105) H 11/27/22 10:00 Total Protein 7.4 g/dL (6.6-8.7) 11/27/22 10:00 Albumin 4.1 g/dL (3.5-5.2) 11/27/22 10:00 Globulin 3.3 g/dL (1.3-4.6) 11/27/22 10:00 Urine Color Straw (Yellow) 11/27/22 10:00 Urine Appearance Clear (CLEAR) 11/27/22 10:00 Urine pH 8 (5-7) H 11/27/22 10:00 Ur Specific [place] 1.010 (1.005-1.030) 11/27/22 10:00 Urine Protein Neg (Negative) 11/27/22 10:00 Urine Glucose (UA) Norm (Normal) 11/27/22 10:00 Urine Ketones Negative (Negative) 11/27/22 10:00 Urine Blood Neg (Negative) 11/27/22 10:00 Urine Nitrate Negative (Negative) 11/27/22 10:00 Urine Bilirubin Neg (Negative) 11/27/22 10:00 Prot Sulfosalicylic Acd Negative (Negative) 11/27/22 10:00 Urine Urobilinogen Norm mg/dL (Negative) 11/27/22 10:00 Ur Leukocyte Esterase Negative (Negative) 11/27/22 10:00 Blood Type B Positive 11/27/22 10:00 Rho(D) Type Positive 11/27/22 10:00 Antibody Screen Negative 11/27/22 10:00 Vitals Last Vital Signs Temp 97.6 F 11/29/22 04:06 Pulse 68 11/29/22 04:06 Resp 15 11/29/22 04:06 BP 118/72 11/29/22 04:06 Pulse Ox 98 11/29/22 04:06 O2 Del Method Room Air 11/29/22 04:06 Discharge Plan Discharge Patient Disposition: Home Condition: Stable Prescriptions: New acetaminophen 325 mg capsule 325 mg PO Q4H PRN (Reason: fever or postoperative pain) Qty: 60 0RF ibuprofen 800 mg tablet 800 mg PO TID PRN (Reason: pain) Qty: 60 0RF Continued levothyroxine 112 mcg capsule 112 mcg PO DAILY oxybutynin chloride 5 mg tablet 5 mg PO DAILY pantoprazole 40 mg tablet,delayed release (DR/EC) 40 mg PO DAILY zolpidem 5 mg tablet 5 mg PO DAILY trazodone 50 mg tablet 50 mg PO DAILY levocetirizine [Xyzal] 5 mg tablet 5 mg PO BID Discharge Orders: Discharge Order (Routine); Ordered 11/29/22 Ordered By: Ubaldo Rosales Referrals: Ubaldo Rosales MD [Physician] - 12/13/22 1:45 pm (2 week post-op: 12/13/22 @ 1:45 6 week post-op: 01/22/23 @ 9:45) Discharge Diet: Usual diet Discharge Activity: Limit activity as instructed Patient Instructions: Narcotic Safety (ED), Bladder Sling for Women (DC), OB Discharge Report, OB Food/Drug Interaction Guide, Opioid Safety Activity Restrictions/Additional Instructions: 1. Please call [facility] on next working day to make your post-operative appointment in 2 weeks. 2. Please stay home until you come back to the clinic on first post-hospatilization check up. 3. Please follow instructions on your medications CAREFULLY. 4. If you have abdominal incision, do not cover it unless dressing is necessary because of drainage. OK to shower, but avoid bath. Leave steri-strips until they fall off. If they are still on one week after surgery, you may remove them. 5. If you had vaginal surgery or vaginal repair, Dr. Rosales may instruct you to take SITZ bath. 6. Yellow, blood tinged odorous vaginal discharge is usually normal after hysterectomy or vaginal surgeries. 7. No SEXUAL INTERCOURSE, tampons, or douches until you are completely released from the post-operative care. 8. Avoid constipation by eating right and maybe using some Metamucil or Milk of Magnesia. 9. All prescription refills are given during the working hours. Please do no wait till it runs out. Call the clinic at [phone] before your medication runs out. The clinic will get in touch with your doctor to prescribe medications if necessary. 10. Please remain within 40 mile radius from our hospital because emergencies do happen now and then during the post-operative period. 11. If you have stairs at home, take one step at a time slowly and minimize the number of trips. It helps to stay in one floor for the next few days. No lifting except what you can lift by one hand until you are released from the post-operative care. 12. Driving is discouraged until you are well healed. It may be 3-4 weeks before you feel strong enough to drive. You should be able to turn and look through the rear window without pain and you should be able to push the brake pedal very hard without pain before you drive. No fast rules, but SAFETY should be your primary concern. DO NOT drive if you are on sedating medications such as narcotics. 13. Call the clinic (during working hours) to make urgent appointment or go to the Emergency room, if any of the following occurs: i. Vaginal bleeding becomes heavy, more than a period. ii. Incision becomes red and sore, or drains pus. iii. Your TEMPERATURE is over 100.4F or you have chill. iv. IV site becomes red and swollen (a little ``knot?? is usually OK) v. Persistent nausea and vomiting vi. Persistent constipation or diarrhea vii. Rash or allergic reaction to medications. Discharge Attestations PROFESSOR OF ENGLISH Time Spent in Discharge Care*: greater than 30 min Coding Level of Care Code Acute Code for Chg Fwd Diagnoses
[2022-11-29 11:13] VITALS: BP 118/72; PULSE 68; RESP 15; TEMP 36.4; O2SAT 98
== END 2022-11-29 11:15 | disposition home or self-care (01) ==
LOC: OBGYN 16:46
PROVIDERS: Admitting Provider Obstetrics & Gynecology; PCP Family Medicine; Visit Provider Obstetrics & Gynecology
PROC: (CPT 57288; principal; 2022-11-28 12:50)
DX: N39.46 Mixed incontinence (principal); D64.9 Anemia, unspecified; K21.9 Gastro-esophageal reflux disease without esophagitis; E03.9 Hypothyroidism, unspecified; Z79.899 Other long term (current) drug therapy; Z88.2 Allergy status to sulfonamides
CPT/HCPCS: 57288; 36415; 51702; 51798; 80053; 81003; 85025; 85027; 86850; 86900; 96374; 96376; C1713; G0378; J0690; J1100; J1650; J1885; J2405; J2704; J3010; J3490; J7030; J7040; J7121

== ENCOUNTER 2023-03-29 14:26 | Outpatient (CLI) | payer MEDICARE, SELFPAY ==
--- NOTE | 2023-03-29 14:29 | MM_ITS ---
WS: [id number] Right breast diagnostic 3D tomosynthesis digital mammogram, 03/29/2023 Clinical Data: HX OF BREAST CANCER Comparison: 02/20/2022, 02/28/2021, 02/25/2020, 02/19/2019, 12/12/2017, 12/06/2016, 12/06/2015, 09/02/2014, 02/26/2013, 12/29/2011, 12/13/2010, 04/06/2010, 10/04/2009. Findings: The right breast shows fibroglandular tissue. There are scattered benign calcifications in the anteri or aspect of the breast. There are no spiculated masses nor clustered calcifications. There are no se condary signs of carcinoma. Impression: 1. Negative right breast mammogram. 2. Recommend annual right breast mammogram. MM/[place] [id number] BIRADS: 1-Negative FOLLOW UP: 1 Year Follow-up The CAD gas meter checker was used.
== END 2023-03-29 14:27 | disposition home or self-care (01) ==
LOC: RAD 14:26
PROVIDERS: PCP Family Medicine; Visit Provider Nurse Practitioner Family
DX: Z85.3 Personal history of malignant neoplasm of breast (principal)
CPT/HCPCS: 77061; G0279

== ENCOUNTER → 2023-11-13 09:54 | Outpatient (BNVA) | payer MEDICARE, SELFPAY | PROVIDERS: PCP Family Medicine; Visit Provider Nurse Practitioner Family | DX: L57.0 Actinic keratosis (principal); D22.5 Melanocytic nevi of trunk; L81.3 Cafe au lait spots; L82.1 Other seborrheic keratosis; D22.71 Melanocytic nevi of right lower limb, including hip; Z85.820 Personal history of malignant melanoma of skin | CPT/HCPCS: 17000; 99203 ==

== ENCOUNTER → 2024-05-15 08:12 | Outpatient (BNVA) | payer MEDICARE, SELFPAY | PROVIDERS: PCP Family Medicine; Visit Provider Nurse Practitioner Family | DX: D22.5 Melanocytic nevi of trunk (principal); L81.3 Cafe au lait spots; L82.1 Other seborrheic keratosis; D22.71 Melanocytic nevi of right lower limb, including hip; Z08 Encounter for follow-up examination after completed treatment for malignant neoplasm; Z85.820 Personal history of malignant melanoma of skin | CPT/HCPCS: 99213 ==

== ENCOUNTER 2024-06-12 10:11 | Outpatient (CLI) | payer MEDICARE, SELFPAY ==
--- NOTE | 2024-06-12 10:18 | MM_ITS ---
WS: [id number] RIGHT 3D TOMOSYNTHESIS DIGITAL MAMMOGRAPHY WITH CAD CLINICAL INFORMATION: PERSONAL HX OF MALIGNANT NEOPLASM OF BREAST HISTORY: LEFT mastectomy COMPARISON: 2022 TECHNIQUE: 3 views of the right breast were obtained. FINDINGS: Scattered fibroglandular densities of the right breast. No suspicious focal mass, asymmetry, calcifications, or architectural distortion. No evidence of malignancy. MM/MM diag RT tomosynthesis [id number] IMPRESSION: DENSITY: There are scattered areas of fibroglandular density. BI-RADS: 2 - Benign. FOLLOW UP: 1 Year Follow-up Recommend return to annual diagnostic mammography.
== END 2024-06-12 10:12 | disposition home or self-care (01) ==
PROVIDERS: Visit Provider Family Medicine
DX: Z85.3 Personal history of malignant neoplasm of breast (principal); Z98.890 Other specified postprocedural states; R92.323 Mammographic fibroglandular density, bilateral breasts
CPT/HCPCS: 77061; G0279